=== PATIENT | female | born 1990 | race Hispanic/Latino ===

== ENCOUNTER 2018-04-11 13:02 | Emergency (ER) | payer SELFPAY ==
[2018-04-11] MEDS ORDERED: Lidocaine 1% w/Epinephrine 1:100K 20 ML VIAL ONE (14:04)
[2018-04-11] MEDS ORDERED: Bacitracin Zinc 1 Packet ONE (14:43)
== END 2018-04-11 15:02 | disposition home or self-care (01) ==
LOC: ERS 13:02
DX: S61.511A Laceration without foreign body of right wrist, initial encounter (principal); J45.909 Unspecified asthma, uncomplicated; D64.9 Anemia, unspecified; F41.9 Anxiety disorder, unspecified; F32.9 Major depressive disorder, single episode, unspecified; F17.210 Nicotine dependence, cigarettes, uncomplicated; W25.XXXA Contact with sharp glass, initial encounter
CPT/HCPCS: 12001; J2001

== ENCOUNTER 2018-04-22 10:54 | Emergency (ER) | payer SELFPAY | END 2018-04-22 11:17 | disposition home or self-care (01) | LOC: ERS 10:54 | DX: S61.511D Laceration without foreign body of right wrist, subsequent encounter (principal); J45.909 Unspecified asthma, uncomplicated; D64.9 Anemia, unspecified; F41.9 Anxiety disorder, unspecified; F32.9 Major depressive disorder, single episode, unspecified; F17.210 Nicotine dependence, cigarettes, uncomplicated; X58.XXXD Exposure to other specified factors, subsequent encounter ==

== ENCOUNTER 2024-02-18 10:07 | Inpatient (IN) | payer BC, SELFPAY ==
[2024-02-18] MEDS ORDERED: Albuterol 2.5 MG (3 mL) NEB ONE ×2 (10:55→12:28)
[2024-02-18] MEDS ORDERED: Ipratropium/Albuterol 3 ML NEB ONE ×2 (10:56→12:28)
[2024-02-18] MEDS ORDERED: Magnesium 2 GM/50 ML BAG (IN WATER) ONE (11:02)
[2024-02-18] MEDS ORDERED: Dexamethasone 10 MG/ML VIAL ONE (11:02)
[2024-02-18 11:43] LABS: #Basophils Less than 0.03 10x3/uL (0.0-0.2); #Eosinphils Less than 0.03 10x3/uL (0.0-0.7); %Basophils 0.4 % (0.0-1.0); %Lymphocytes 8.4 % (21.0-51.0); %Monocytes 8.4 % (0.0-10.0); %Neutrophils 82.2 % (42.0-75.0); Hemoglobin 8.1 g/dL (12.0-16.0); Mean Corpuscular Hemoglobin 18.9 pg (27.0-31.0); Mean Corpuscular Volume 70.1 fL (78.0-98.0); Mean Platelet Volume 10.1 fL (7.4-10.4); Platelet Count 232 10x3/uL (130-400); RBC Distribution Width 23.3 % (11.5-14.5); Red Blood Cell (RBC) Count 4.28 mill/uL (4.20-5.40)
[2024-02-18 11:53] LABS: BHCG - Serum Negative (NEGATIVE); Pregs Control Background? CLEAR/WHITE (CLR/WHITE); Pregs Control Bar Appear? YES (CONTROL BAR)
[2024-02-18 12:02] LABS: Globulin 3.8 g/dL (2.4-3.5)
[2024-02-18 12:06] LABS: ALT (SGPT) 16 U/L (8-55); AST (SGOT) 39 U/L (5-34); Albumin 3.7 g/dL (3.5-5.0); Alkaline Phosphatase 72 U/L (40-110); Anion Gap 17 mmol/L (10-20); BUN (Urea Nitrogen) 6 mg/dL (7.0-18.7); Bilirubin, Total 0.4 mg/dL (0.2-1.2); Calc. Creatinine Clearance 0 mL/min (70-130); Carbon Dioxide 18 mmol/L (22-29); Chloride 103 mmol/L (98-107); Estimated GFR 123; Glucose 114 mg/dL (70-105); Potassium 4.2 mmol/L (3.5-5.1); Protein, Total 7.5 g/dL (6.0-8.3); Sodium 134 mmol/L (136-145)
[2024-02-18 12:16] LABS: Influenza A by NAA DETECTED (NotDetected); Influenza B by NAA Not Detected (NotDetected); SARS-CoV-2 NAA Rapid Test Not Detected (NotDetected)
[2024-02-18] MEDS ORDERED: Acetaminophen 500 MG TAB ONE (13:42)
[2024-02-18] MEDS ORDERED: Azithromycin 500 MG VIAL ONE (14:06)
[2024-02-18] MEDS ORDERED: cefTRIAXone (ROCEPHIN) 2 GM VIAL ONE (14:06)
[2024-02-18] MEDS ORDERED: Oseltamivir 75 MG CAP ONE (14:06)
[2024-02-18] MEDS ORDERED: Ipratropium/Albuterol 3 ML NEB NEB PRN (14:39)
[2024-02-18] MEDS ORDERED: Ibuprofen 800 MG TAB PO PRN (14:43)
[2024-02-18] MEDS: Pantoprazole DR 40 MG TAB PO SCH (16:21)
[2024-02-18] MEDS: Ondansetron ODT 4 MG TAB PO PRN (16:21)
[2024-02-18] MEDS: Lactated Ringer's 1,000 ML IV SCH (16:21)
[2024-02-18] MEDS: Nicotine 21 MG PATCH TD SCH (16:22)
[2024-02-18 17:16] VITALS: BMI 48.4
[2024-02-18] MEDS: Ipratropium/Albuterol 3 ML NEB NEB SCH (18:16)
[2024-02-18] MEDS: Mometasone 200 MCG/Formoterol 5 MCG 120 PUFF INHALER INH SCH (18:21)
[2024-02-18] MEDS: Amlodipine 10 MG TAB PO SCH (18:46)
[2024-02-18] MEDS: Oseltamivir 75 MG CAP PO SCH (19:57)
[2024-02-18] MEDS: Montelukast Sodium 10 mg Tablet PO SCH (19:57)
[2024-02-18] MEDS: Acetaminophen 325 MG TAB PO PRN (23:08)
[2024-02-18] MEDS: Benzonatate 100 MG CAP PO PRN (23:08)
[2024-02-18 23:41] LABS: Troponin I Less than 0.010 ng/mL (< 0.028)
[2024-02-19] MEDS ORDERED: Guaifenesin DM 100-10/5 ML UDCUP PO PRN (07:19)
[2024-02-19] MEDS: predniSONE 20 MG TAB PO SCH (08:06)
[2024-02-19] MEDS: Pantoprazole DR 40 MG TAB PO SCH (08:06)
[2024-02-19] MEDS: Ferrous Gluconate 324 MG TAB PO SCH (08:07)
[2024-02-19 08:36] LABS: Anion Gap 15 mmol/L (10-20); BUN (Urea Nitrogen) 7 mg/dL (7.0-18.7); Calc. Creatinine Clearance 296 mL/min (70-130); Calcium 8.8 mg/dL (7.8-10.44); Carbon Dioxide 20 mmol/L (22-29); Chloride 107 mmol/L (98-107); Estimated GFR 124; Glucose 112 mg/dL (70-105); Potassium 3.5 mmol/L (3.5-5.1); Sodium 138 mmol/L (136-145)
[2024-02-19 09:00] LABS: #Basophils Less than 0.03 10x3/uL (0.0-0.2); #Eosinphils Less than 0.03 10x3/uL (0.0-0.7); %Basophils 0.3 % (0.0-1.0); %Lymphocytes 22.7 % (21.0-51.0); %Monocytes 13.7 % (0.0-10.0); %Neutrophils 63.3 % (42.0-75.0); Hematocrit 26.2 % (36.0-47.0); Hemoglobin 7.2 g/dL (12.0-16.0); Mean Corpuscular HGB CONC 27.5 g/dL (32.0-36.0); Mean Corpuscular Volume 72.8 fL (78.0-98.0); Mean Platelet Volume 10.6 fL (7.4-10.4); Platelet Count 222 10x3/uL (130-400); RBC Distribution Width 23.2 % (11.5-14.5)
[2024-02-19] MEDS ORDERED: Albuterol 2.5 MG (3 mL) NEB NEB PRN (11:06)
[2024-02-19] MEDS: Guaifenesin DM 100-10/5 ML UDCUP PO ONE (11:34)
[2024-02-19 13:43] VITALS: BMI 48.4
[2024-02-19] MEDS: Benzonatate 100 MG CAP PO PRN (20:28)
[2024-02-20 08:34] LABS: Hematocrit 28.2 % (36.0-47.0); Hemoglobin 7.5 g/dL (12.0-16.0); Mean Corpuscular HGB CONC 26.6 g/dL (32.0-36.0); Mean Corpuscular Hemoglobin 19.4 pg (27.0-31.0); Mean Corpuscular Volume 73.1 fL (78.0-98.0); Mean Platelet Volume 9.9 fL (7.4-10.4); Platelet Count 218 10x3/uL (130-400); RBC Distribution Width 23.5 % (11.5-14.5); Red Blood Cell (RBC) Count 3.86 mill/uL (4.20-5.40)
[2024-02-20 08:42] VITALS: BP 124/78; TEMP 98.5
[2024-02-20 08:46] LABS: ALT (SGPT) 15 U/L (8-55); AST (SGOT) 20 U/L (5-34); Albumin 3.4 g/dL (3.5-5.0); Alkaline Phosphatase 59 U/L (40-110); Anion Gap 12 mmol/L (10-20); BUN (Urea Nitrogen) 8 mg/dL (7.0-18.7); Bilirubin, Total 0.3 mg/dL (0.2-1.2); Calc. Creatinine Clearance 296 mL/min (70-130); Calcium 8.9 mg/dL (7.8-10.44); Carbon Dioxide 23 mmol/L (22-29); Chloride 107 mmol/L (98-107); Estimated GFR 124; Glucose 86 mg/dL (70-105); Potassium 3.6 mmol/L (3.5-5.1); Protein, Total 6.4 g/dL (6.0-8.3); Sodium 138 mmol/L (136-145)
== END 2024-02-20 12:47 | disposition home or self-care (01) | DRG 202 ==
LOC: ERS 10:07 → T4-B 15:28 → OBSVTOIN 02-19 10:40
PROVIDERS: ADMIT Family Medicine; ATTEND Family Medicine
DX: J45.901 Unspecified asthma with (acute) exacerbation (principal); E87.1 Hypo-osmolality and hyponatremia; Z68.42 Body mass index [BMI] 45.0-49.9, adult; J10.1 Influenza due to other identified influenza virus with other respiratory manifestations; D64.9 Anemia, unspecified; I10 Essential (primary) hypertension; F41.9 Anxiety disorder, unspecified; F32.9 Major depressive disorder, single episode, unspecified; E66.01 Morbid (severe) obesity due to excess calories; F32.A Depression, unspecified; M94.0 Chondrocostal junction syndrome [Tietze]; D25.9 Leiomyoma of uterus, unspecified; N83.201 Unspecified ovarian cyst, right side; F17.210 Nicotine dependence, cigarettes, uncomplicated; Z79.899 Other long term (current) drug therapy; Z79.51 Long term (current) use of inhaled steroids
CPT/HCPCS: 36415; 71045; 80048; 80053; 83605; 84145; 84484; 84703; 85025; 85027; 87040; 93005; 93010; 94640; 94664; G0378; J0456; J0696; J1100; J3475; J7120; J7512; J7611; J7620; Q0162